=== PATIENT | female | born 1970 | race Caucasian/White ===

== ENCOUNTER 2017-12-26 23:08 | Emergency (ER) | payer SELFPAY ==
[~2017-12-26] VITALS: Ht 157.5 cm; Wt 83.6 kg
[~2017-12-26 23:08] MED LIST: FLEXERIL5 MG PO; NAPROSYN500 MG PO; TRAMADOL HCL50 MG PO
[2017-12-26 23:38] LABS: APPEARANCE CLEAR ((CLEAR)); BILIRUBIN NEGATIVE; BLOOD NEGATIVE; COLOR YELLOW ((YELLOW)); GLUCOSE (STRIP) NEGATIVE; KETONES NEGATIVE; LEUKOCYTES NEGATIVE; NITRITE NEGATIVE; PROTEIN (STRIP) NEGATIVE; SPECIFIC GRAVITY 1.015 (1.000-1.030); UCUL ADDED? NO; UROBILINOGEN 0.2 MG/DL (0.2-1.0)
[2017-12-27 00:10] LABS: ALBUMIN 4.2 g/dL (3.2-4.8); CHLORIDE 108 mEq/L (99-109); SODIUM 142 mEq/L (136-147)
[2017-12-27 00:13] LABS: GLUCOSE 82 mg/dL (70-99); TOTAL PROTEIN 6.9 g/dL (6.4-8.3)
[2017-12-27 00:14] LABS: TOTAL BILIRUBIN 0.3 mg/dL (0.0-1.0)
[2017-12-27 00:16] LABS: ALKALINE PHOSPHATASE 63 IU/L (3-129); CREATININE 0.8 mg/dL (0.6-1.3); GFR ESTIMATE (CALCULATED) > 59 mL/min/
[2017-12-27 00:17] LABS: UREA NITROGEN (BUN) 12 mg/dL (9-23)
[2017-12-27 00:18] LABS: AST (GOT) 19 IU/L (2-34)
[2017-12-27 00:19] LABS: ALT (GPT) 20 IU/L (3-49)
[2017-12-27 00:28] LABS: QUANTITATIVE HCG < 4.0 MIU/ML
[2017-12-27 02:25] LABS: HEMATOCRIT 38.2 % (36.0-46.0); HEMOGLOBIN 12.9 G/DL (11.9-15.5); MCH 30.6 PG (29.0-34.0); MCHC 33.8 G/DL (30.0-36.0); MCV 90.7 FL (83-99); PLAT.SUFFICIENCY ADEQUATE; PLATELET COUNT 311 K/uL (156-360); RBC DIS.WIDTH-CV 13.1 % (11.8-14.6); RBC DIS.WIDTH-SD 43.1 % (39-53); RED BLOOD COUNT 4.21 M/uL (3.80-5.20); WHITE BLOOD COUNT 10.4 K/uL (4.1-10.2)
[2017-12-27] MEDS ORDERED: KEFLEX500 MG PO (03:04)
[2017-12-27] MEDS ORDERED: PROMETHAZINE HC25 M1 PO (03:04)
[2017-12-27] MEDS ORDERED: NAPROSYN500 MG PO (03:04)
[2017-12-27 03:15] VITALS: BP 148/87
== END 2017-12-27 03:15 | disposition home or self-care (01) ==
LOC: EME 23:08
DX: R30.0 Dysuria (principal); R10.9 Unspecified abdominal pain; R11.0 Nausea; M54.5 Low back pain; R03.0 Elevated blood-pressure reading, without diagnosis of hypertension; K42.9 Umbilical hernia without obstruction or gangrene; Z87.442 Personal history of urinary calculi; Z90.49 Acquired absence of other specified parts of digestive tract; F17.200 Nicotine dependence, unspecified, uncomplicated
CPT/HCPCS: 74176; 80053; 81003; 84702; 85027; 87086; J1885